=== PATIENT | male | born 1980 | race Hispanic/Latino ===

== ENCOUNTER 2019-11-18 19:13 | Emergency (ER) | payer BC, OTHER ==
[~2019-11-18] VITALS: Ht 167.6 cm; Wt 123.8 kg
[2019-11-18] MEDS ORDERED: CEFTRIAXONE SOD 1 GM/NS 50 ML 50 ML IV ONE (20:15)
[2019-11-18] MEDS ORDERED: ACETAMINOPHEN 325 MG TAB PO ONE (20:15)
[2019-11-18 20:20] LABS: BASOPHILS % 0.1 % (0.0-1.0); EOSINOPHILS % 0.1 % (0.0-6.0); HEMATOCRIT 46.9 % (38.2-49.6); HEMOGLOBIN 15.4 g/dL (14.0-18.0); LYMPHOCYTES # (AUTO) 0.8 (1.0-3.2); LYMPHOCYTES % 8.9 % (18.0-39.1); MEAN CORPUSCULAR HEMOGLOBIN 27.9 pg (28-32); MEAN CORPUSCULAR HGB CONC 32.8 g/dL (31-35); MONOCYTES # (AUTO) 0.2 (0.2-0.8); MONOCYTES % 2.4 % (4.4-11.3); NEUTROPHILS # (AUTO) 8.1 (2.1-6.9); NEUTROPHILS % 88.1 % (38.7-80.0); PLATELET COUNT 274 x10e3/uL (140-360); RED BLOOD COUNT 5.52 x10e6/uL (4.3-5.7)
[2019-11-18 20:34] LABS: ALANINE AMINOTRANSFERASE 62 IU/L (0-55); ALBUMIN 2.5 g/dL (3.5-5.0); ALBUMIN/GLOBULIN RATIO 0.5 (0.8-2.0); ALKALINE PHOSPHATASE 106 IU/L (40-150); ANION GAP 16.6 mmol/L (8-16); BLOOD UREA NITROGEN 6 mg/dL (7-26); BUN/CREATININE RATIO 8 (6-25); CALCIUM 9.2 mg/dL (8.4-10.2); CARBON DIOXIDE 26 mmol/L (22-29); CHLORIDE 99 mmol/L (98-107); CREATINE KINASE 81 IU/L (30-200); EST GLOMERULAR FILTRATION RATE > 60 ML/MIN (60-); GLUCOSE 94 mg/dL (74-118); POTASSIUM 3.6 mmol/L (3.5-5.1); SODIUM 138 mmol/L (136-145)
[2019-11-18] MEDS ORDERED: AZITHROMYCIN 500MG/NS 250 ML 250 ML IV ONE (20:35)
--- NOTE | 2019-11-18 20:54 | Diagnostic Imaging Report ---
EXAMINATION: CHEST SINGLE (PORTABLE) INDICATION: Shortness of breath and cough. COVID + COMPARISON: None FINDINGS: TUBES and LINES: None. LUNGS: Lungs are mildly hypoinflated. Bilateral patchy airspace disease concerning for multifocal pneumonia. PLEURA: No pleural effusion or pneumothorax. HEART AND MEDIASTINUM: The cardiomediastinal silhouette is unremarkable. BONES AND SOFT TISSUES: No acute osseous lesion. Soft tissues are unremarkable. UPPER ABDOMEN: No free air under the diaphragm. IMPRESSION: Bilateral multifocal pneumonia. Signed by: Dr. Elodia Ansari M.D. on 11/18/2019 8:51 PM
--- NOTE | 2019-11-18 23:48 | NUR ---
Transfer initiated at 2230, placed on waiting list for transfer
[2019-11-19] MEDS ORDERED: ACETAMINOPHEN 325 MG TAB PO ONE (04:15)
--- NOTE | 2019-11-19 06:39 | Emergency Department Note ---
History of Present Illnes History of Present Illness Chief Complaint: COVID PUI History of Present Illness This is a 39 year old male arrives to the ED with complaints of shortness of breath, worried he has Coban 19. Pt states shortness of breath is worsening and his fever has been hard to break lately. . Chief Complaint Comment PATIENT IN FROM HOME WITH COMPLAINTS OF COVID + WITH INCREASING SHORTNESS OF BREATH; STATES WAS TESTED 10 DAYS AGO AMD HAS HAD INCREASED SHORTNESS OF BREATH; PATIENT O2 SATS 87% ON ROOM AIR, MOVED TO ROOM 9 Historian: Patient Arrival Mode: Car Onset (how long ago): day(s) Severity: mild Duration (how long): hour(s) Progression: worsening Relieving factors: none Past Medical/Family History Physician Review I have reviewed the patient's past medical and family history. Any updates have been documented here. Past Medical History Recent Fever: No Clinical Suspicion of Infectio: Yes New/Unexplained Change in Ment: No Past Medical History: None Other Surgery: CORNEAL TRANSPLANT 2007 Family History Family history of heart diseas: No Other Last Tetanus: UNKNOWN Review of Systems Review of Systems Constitutional: Reports as per HPI, Reports fever EENTM: Reports no symptoms Cardiovascular: Reports no symptoms Respiratory: Reports as per HPI, Reports cough, Reports pain with cough, Reports dyspnea Gastrointestinal: Reports no symptoms Genitourinary: Reports no symptoms Musculoskeletal: Reports no symptoms Integumentary: Reports no symptoms Neurological: Reports no symptoms Psychological: Reports no symptoms Endocrine: Reports no symptoms Hematological/Lymphatic: Reports no symptoms Physical Exam Related Data Allergies: Coded Allergies: No Known Allergies (Unverified , 11/18/19) Triage Vital Signs Vital Signs Date Time Temp Pulse Resp B/P (MAP) Pulse Ox O2 Delivery O2 Flow Rate FiO2 11/18/19 19:28 100.8 96 24 138/86 87 11/18/19 19:35 2.0 Vital signs reviewed: Yes Physical Exam CONSTITUTIONAL Constitutional: Present well-developed, Present well-nourished, Present ill appearing HENT HENT: Present normocephalic, Present atraumatic, Present oropharynx clear/moist, Present nose normal HENT L/R: Present left ext ear normal, Present right ext ear normal EYES Eyes: Reports PERRL, Reports conjunctivae normal NECK Neck: Present ROM normal PULMONARY Pulmonary: Present respiratory distress CARDIOVASCULAR Cardiovascular: Present regular rhythm, Present heart sounds normal, Present c apillary refill normal, Present normal rate GASTROINTESTINAL Abdominal: Present soft, Present nontender, Present bowel sounds normal GENITOURINARY Genitourinary: Present exam deferred SKIN Skin: Present warm, Present dry MUSCULOSKELETAL Musculoskeletal: Present ROM normal NEUROLOGICAL Neurological: Present alert, Present oriented x 3, Present no gross motor or sensory deficits PSYCHOLOGICAL Psychological: Present mood/affect normal, Present judgement normal Results Laboratory Result Diagram: 11/18/19193911/18/191939 Laboratory Laboratory Tests Test 11/19/19 01:31 11/18/19 19:40 White Blood Count 9.19 x10e3/uL (4.8-10.8) Red Blood Count 5.52 x10e6/uL (4.3-5.7) Hemoglobin 15.4 g/dL (14.0-18.0) Hematocrit 46.9 % (38.2-49.6) Mean Corpuscular Volume 85.0 fL (81-99) Mean Corpuscular Hemoglobin 27.9 pg (28-32) Mean Corpuscular Hemoglobin Concent 32.8 g/dL (31-35) Red Cell Distribution Width 13.0 % (11.7-14.4) Platelet Count 274 x10e3/uL (140-360) Neutrophils (%) (Auto) 88.1 % (38.7-80.0) Lymphocytes (%) (Auto) 8.9 % (18.0-39.1) Monocytes (%) (Auto) 2.4 % (4.4-11.3) Eosinophils (%) (Auto) 0.1 % (0.0-6.0) Basophils (%) (Auto) 0.1 % (0.0-1.0) Neutrophils # (Auto) 8.1 (2.1-6.9) Lymphocytes # (Auto) 0.8 (1.0-3.2) Monocytes # (Auto) 0.2 (0.2-0.8) Eosinophils # (Auto) 0.0 (0.0-0.4) Basophils # (Auto) 0.0 (0.0-0.1) Absolute Immature Granulocyte (auto 0.04 x10e3/uL (0-0.1) Sodium Level 138 mmol/L (136-145) Potassium Level 3.6 mmol/L (3.5-5.1) Chloride Level 99 mmol/L (98-107) Carbon Dioxide Level 26 mmol/L (22-29) Anion Gap 16.6 mmol/L (8-16) Blood Urea Nitrogen 6 mg/dL (7-26) Creatinine 0.80 mg/dL (0.72-1.25) Estimat Glomerular Filtration Rate > 60 ML/MIN (60-) BUN/Creatinine Ratio 8 (6-25) Glucose Level 94 mg/dL (74-118) Lactic Acid Level 1.8 mmol/L (0.5-2.0) Calcium Level 9.2 mg/dL (8.4-10.2) Total Bilirubin 0.6 mg/dL (0.2-1.2) Aspartate Amino Transf (AST/SGOT) 49 IU/L (5-34) Alanine Aminotransferase (ALT/SGPT) 62 IU/L (0-55) Alkaline Phosphatase 106 IU/L (40-150) Creatine Kinase 81 IU/L (30-200) Creatine Kinase MB 1.00 ng/mL (0-5.0) Troponin I < 0.001 ng/mL (0-0.300) Total Protein 7.9 g/dL (6.5-8.1) Albumin 2.5 g/dL (3.5-5.0) Globulin 5.4 g/dL (2.3-3.5) Albumin/Globulin Ratio 0.5 (0.8-2.0) Lab results reviewed: Yes Imaging Imaging results reviewed: Yes Impressions IMPRESSION: Bilateral multifocal pneumonia. Critical Care Time Total Critical Care Time (min): 105 Critical care time exclusive o: separately billable procedures Critcal care necessary due to: respiratory failure Assessment & Plan Medical Decision Making MDM 39 yo M arrived to the ED in acute respiratory distress 2/2 to covid-19, pt required a high oxygen demand. Patient monitored closely in the ED frequently placed in prone position ED nonrebreather, BiPAP and oxygen. Patient is awaiting ICU bed. In the interim patient fully monitored in the emergency department. Assessment & Plan Final Impression: (1) Acute respiratory disease due to COVID-19 virus Depart Disposition: TRANS TO OTHER [facility] Last Vital Signs Date Time Temp Pulse Resp B/P (MAP) Pulse Ox O2 Delivery O2 Flow Rate FiO2 11/19/19 04:14 100.8 105 24 137/74 87 11/18/19 19:35 2.0 Medications in the ED Acetaminophen 975 mg ONCE ONCE PO Last administered on 11/18/19at 20:36; Admin Dose 975 MG; Start 11/18/19 at 20:15; Stop 11/18/19 at 20:19; Status DC Ceftriaxone Sodium 50 ml @ 100 mls/hr ONCE ONCE IV Last administered on 11/18/19at 20:36; Admin Dose 100 MLS/HR; Start 11/18/19 at 20:15; Stop 11/18/19 at 20:44; Status DC Azithromycin 250 ml @ 250 mls/hr NOW ONCE IV Last administered on 11/18/19at 23:00; Admin Dose 250 MLS/HR; Start 11/18/19 at 20:35; Stop 11/18/19 at 21:34; Status DC Acetaminophen 650 mg ONCE ONCE PO Last administered on 11/19/19at 04:13; Admin Dose 650 MG; Start 11/19/19 at 04:15; Stop 11/19/19 at 04:19; Status DC JONATHAN NUNN DO Nov 19, 2019 06:39
--- NOTE | 2019-11-19 12:43 | NUR ---
Contacted [facility] transfer center to check on status of transfer. Spoke to transferrer stated [facility] is handling the transfer also stated we are just waiting on an accepting physician and doc to doc. Will contact [facility] [phone].
--- NOTE | 2019-11-19 13:07 | NUR ---
Called [facility] transfer center to check on status of transfer, spoke to Susana-transfer table operator, stated they needed more info on pt- info provided, stated will contact a physician to provide acceptance and do doc to doc.
--- NOTE | 2019-11-19 13:40 | NUR ---
Pt accepted at [facility] at this time. Dr. Washington is the accepting doctor. Pt to be admitted to room 267. Number for report [phone]. [facility] [address] [place] [address]
--- NOTE | 2019-11-19 14:53 | NUR ---
[facility] contacted at this time for transport to [facility] spoke to Danilo. Notified of need for ACLS admitting manager, cardiac monitoring, O2 pt currently on 6L. ETA 1.5hr.
[2019-11-19 18:46] VITALS: BP 128/63
--- NOTE | 2019-11-19 19:31 | NUR ---
Pt sister Kendra Grayson [phone] called stating she spoke with some contacts at [facility] and was able to get an accepting MD, Dr. Veronica Escalante [phone]. Informed her that the patient was already accepted to [facility] and that EMS was on their way and should arrive any minute now, but that I would contact transfer center to check on transfer process. Spoke with patient and verbal consent was given to speak with his sister Kendra Grayson. Called [facility] transfer center and spoke with [facility] gis coordinator to check on status of transfer stated there has not been a transfer initiated for this patient. Spoke with ERMD and informed pt, Dr. Fletcher spoke with the patient and pt agreed to just keep bed at [facility]. [facility] arrived during this time.
== END 2019-11-19 19:46 | disposition other institution (70) ==
LOC: ER 22:46
DX: U07.1 COVID-19 (principal); J06.9 Acute upper respiratory infection, unspecified; R50.9 Fever, unspecified; R06.02 Shortness of breath; Z94.7 Corneal transplant status
CPT/HCPCS: 36415; 71045; 80053; 82550; 82553; 83605; 84484; 85025; 87040; 87635; 99284; J0456; J0696

== ENCOUNTER → 2020-01-28 | Outpatient (CLI) | payer BC, OTHER ==
--- NOTE | 2020-01-28 11:12 | Diagnostic Imaging Report ---
EXAMINATION: CHEST 2 VIEWS INDICATION: ^[id number] ^1050 ^SHORTNESS OF BREATH /PNEUMONIA COMPARISON: 11/18/2019 FINDINGS: PA and lateral views TUBES and LINES: None. LUNGS: Patchy airspace disease throughout both lungs, notably in the right lung. The degree of airspace opacification has decreased when compared to the previous study from October 2019. PLEURA: No pleural effusion or pneumothorax. HEART AND MEDIASTINUM: The cardiomediastinal silhouette is unremarkable. BONES AND SOFT TISSUES: No acute osseous lesion. Soft tissues are unremarkable. UPPER ABDOMEN: No free air under the diaphragm. IMPRESSION: Patchy pulmonary airspace disease compatible with pneumonia. Consider viral pneumonia. The degree of airspace disease has decreased when compared to the previous study from October 2019. Signed by: Og Nassar MD on 01/28/2020 11:08 AM
== END ==
LOC: RAD 10:40
PROVIDERS: ATTEND Internal Medicine Critical Care Medicine
DX: U07.1 COVID-19 (principal); J18.9 Pneumonia, unspecified organism; R06.00 Dyspnea, unspecified; E66.9 Obesity, unspecified; Z87.891 Personal history of nicotine dependence
CPT/HCPCS: 71046

== ENCOUNTER → 2020-04-27 | Outpatient (CLI) | payer BC | LOC: RESP 08:11 | PROVIDERS: ATTEND Internal Medicine Critical Care Medicine | DX: U07.1 COVID-19 (principal); J18.9 Pneumonia, unspecified organism; R06.00 Dyspnea, unspecified; E66.9 Obesity, unspecified; Z87.891 Personal history of nicotine dependence | CPT/HCPCS: 94060; 94664; 94727; 94729 ==